=== PATIENT | male | born 1990 | race Two or more races ===

== ENCOUNTER 2022-01-15 15:56 | Emergency (ER) | payer BC ==
[2022-01-15 16:23] VITALS: BP 139/85; PULSE 112; RESP 18; TEMP 98
[2022-01-15] MEDS ORDERED: FAMOTIDINE 20 MG/50 ML IVPB 20 MG/50 ML MG IVPB ONE ×2 (18:05→18:17)
[2022-01-15] MEDS ORDERED: KETOROLAC TROMETHAMINE 30 MG/1 ML VIAL IVPUSH ONE (18:05)
[2022-01-15] MEDS ORDERED: SODIUM CHLORIDE 0.9% 500 ML INFUS.BAG IV ONE (18:05)
[2022-01-15] MEDS ORDERED: KETOROLAC TROMETHAMINE 30 MG/1 ML VIAL ONE (18:17)
[2022-01-15 19:34] LABS: BASO % 0.5 % (0-2.0); HEMATOCRIT 46.5 % (35.4-49); HEMOGLOBIN 15.5 GM/dL (11.7-16.9); LYMPH % 10.5 % (8-40); MCHC 33.5 g/dl (32.0-35.9); MEAN CELL VOLUME 101.5 fl (80-96); MEAN PLT VOLUME 8.1 fl (7.5-11.1); MONO % 5.6 % (3.8-10.2); NEUT % 83.4 % (42.8-82.8); PLATELET COUNT 259 10^3/uL (134-434); RBC 4.58 M/mm3 (4.00-5.60); RDW 12.8 % (11.9-15.9); WHITE BLOOD COUNT 8.2 K/mm3 (4.0-10.0)
[2022-01-15 19:59] LABS: CALCIUM 9.8 mg/dL (8.5-10.1)
[2022-01-15 20:00] LABS: ALBUMIN 4.2 g/dl (3.4-5.0)
[2022-01-15 20:03] LABS: CREATININE 0.8 mg/dL (0.55-1.3)
[2022-01-15 20:04] LABS: BILIRUBIN,TOTAL 0.6 mg/dL (0.2-1); TOT PROT 7.6 g/dl (6.4-8.2)
[2022-01-15] MEDS ORDERED: ONDANSETRON 4 MG/2 ML VIAL IVPUSH ONE (23:48)
== END 2022-01-16 00:31 | disposition home or self-care (01) ==
LOC: JER 15:56
PROC: 3E033GC Introduction of Other Therapeutic Substance into Peripheral Vein, Percutaneous Approach (ICD-10-PCS; principal; 2022-01-15)
DX: R07.9 Chest pain, unspecified (principal); R10.84 Generalized abdominal pain
CPT/HCPCS: 36415; 74177-TC; 80053; 83690; 84484; 85025; 93005; 93010; 99285-25; Q9967